=== PATIENT | female | born 1955 | race Caucasian/White ===

== ENCOUNTER → 2016-08-29 | Outpatient (CLI) | payer OTHER ==
[~2016-08-29] VITALS: Ht 157.5 cm; Wt 68.0 kg
[~2016-08-29] MED LIST: CELEXA10 MG PO; DAILY VITE1 EAC1 PO; KEPPRA XR500 MG PO; LO-DOSE ASPIRIN81 M1 PO; PEPCID20 MG PO; PRINIVIL10 MG PO; TEGRETOL200 MG PO; TYLENOL REGULA325 MG PO
[2016-08-29 08:35] LABS: POINT-OF-CARE METER ID UU13113694
[2016-08-29 09:13] LABS: INTER. NORMALIZED RATIO 1.6; PROTHROMBIN TIME 16.9 (9.2-11.2)
[2016-08-29 12:09] LABS: POINT-OF-CARE METER ID UU13113694
[2016-08-29 15:37] LABS: POINT-OF-CARE METER ID UU13113675; POINT-OF-CARE USER ID LABLCH83
== END | disposition home or self-care (01) ==
LOC: AMB 07:38
PROVIDERS: Internal Medicine Gastroenterology
DX: K83.1 Obstruction of bile duct (principal); R79.1 Abnormal coagulation profile; I10 Essential (primary) hypertension; E11.9 Type 2 diabetes mellitus without complications; Z79.82 Long term (current) use of aspirin; K21.9 Gastro-esophageal reflux disease without esophagitis; I25.2 Old myocardial infarction
CPT/HCPCS: 74328; 82948; 85610; 86850; 86900; 86901; 86999; 87081; 88305; C1726; C1757; C1769; C2625; J0744; J2250; J2405; J3010

== ENCOUNTER → 2016-10-03 | Outpatient (CLI) | payer OTHER | END | disposition home or self-care (01) | LOC: OPR 10-02 09:00 → EDSTATUS 09:00 → OPR 09:00 | PROC: 0WJFXZZ Inspection of Abdominal Wall, External Approach (ICD-10-PCS; principal; 2016-10-03) | DX: K76.9 Liver disease, unspecified (principal); Z53.09 Procedure and treatment not carried out because of other contraindication ==

== ENCOUNTER → 2016-10-09 | Outpatient (CLI) | payer OTHER ==
[~2016-10-09] MED LIST changes: +LEVAQUIN750 MG PO
== END | disposition home or self-care (01) ==
LOC: OPR 09:13 → EDSTATUS 10:00
DX: C78.7 Secondary malignant neoplasm of liver and intrahepatic bile duct (principal); K83.1 Obstruction of bile duct
CPT/HCPCS: 47533; 77012; 88307; 88341 TC; 88342 TC; C1729; C1769; J0696; J1885; J2250; J2405; J3010; J7050

== ENCOUNTER 2016-10-12 22:24 | Emergency (ER) | payer OTHER ==
[~2016-10-12] VITALS: Ht 149.9 cm; Wt 83.4 kg
[~2016-10-12 22:24] MED LIST changes: -LEVAQUIN750 MG PO
[2016-10-12 23:20] LABS: MCH 33.8 PG (29.0-34.0); MCHC 33.8 G/DL (30.0-36.0); MEAN PLAT.VOLUME 11.3 uM^3 (9.5-12.4); RBC DIS.WIDTH-CV 12.8 % (11.8-14.6); RBC DIS.WIDTH-SD 47.4 % (39-53)
[2016-10-12 23:22] LABS: CHLORIDE 99 mEq/L (99-109); POTASSIUM 3.8 mEq/L (3.7-5.4); SODIUM 130 mEq/L (136-147)
[2016-10-12 23:23] LABS: PLATELET COUNT 89 K/uL (156-360)
[2016-10-12 23:24] LABS: GLUCOSE 349 mg/dL (70-99); WHITE BLOOD COUNT 8.4 K/uL (4.1-10.2)
[2016-10-12 23:26] LABS: ANION GAP 12 MEQ/L (2-14); TOTAL BILIRUBIN 5.3 mg/dL (0.0-1.0)
[2016-10-12 23:27] LABS: INTER. NORMALIZED RATIO 1.1; PROTHROMBIN TIME 10.9 (9.2-11.2); PTT 20.5 (25-32)
[2016-10-12 23:28] LABS: ALKALINE PHOSPHATASE 346 IU/L (3-129); GFR ESTIMATE (CALCULATED) > 59 mL/min/
[2016-10-12 23:29] LABS: UREA NITROGEN (BUN) 14 mg/dL (9-23)
[2016-10-12 23:31] LABS: LIPASE 25 U/L (1.0-51.0)
[2016-10-13 00:19] LABS: BILIRUBIN MODERATE; BLOOD NEGATIVE; COLOR AMBER ((YELLOW)); GLUCOSE (STRIP) >=500; KETONES 5; LEUKOCYTES NEGATIVE; NITRITE NEGATIVE; PROTEIN (STRIP) 30
[2016-10-13 00:36] LABS: ADD MIUA? NO; UCUL ADDED? NO
[2016-10-13 00:47] LABS: ICTOTEST POSITIVE
[2016-10-13] MEDS ORDERED: LEVAQUIN750 MG PO (00:56)
[2016-10-13 01:21] VITALS: BP 140/84
== END 2016-10-13 01:22 | disposition home or self-care (01) ==
LOC: EME → EDBD 22:24 → EME 10-13 01:22
DX: R10.9 Unspecified abdominal pain (principal); E86.0 Dehydration; E78.5 Hyperlipidemia, unspecified; I10 Essential (primary) hypertension; I25.2 Old myocardial infarction; K21.9 Gastro-esophageal reflux disease without esophagitis; R56.9 Unspecified convulsions; I25.10 Atherosclerotic heart disease of native coronary artery without angina pectoris; Z79.82 Long term (current) use of aspirin
CPT/HCPCS: 74176; 80053; 81003; 83690; 85027; 85610; 85730; 87086; 99281; 99284

== ENCOUNTER → 2016-10-29 | Outpatient (CLI) | payer OTHER ==
[~2016-10-29] MED LIST changes: +LEVAQUIN750 MG PO
== END | disposition home or self-care (01) ==
LOC: RAD 10-28 15:00 → EDSTATUS 15:00 → RAD 15:00
PROC: BF10YZZ Fluoroscopy of Bile Ducts using Other Contrast (ICD-10-PCS; principal; 2016-10-29)
DX: C22.1 Intrahepatic bile duct carcinoma (principal)
CPT/HCPCS: 47536; C1725; C1729; C1769

== ENCOUNTER 2016-11-08 16:35 | Emergency (ER) | payer OTHER ==
[~2016-11-08] VITALS: Ht 149.9 cm; Wt 80.8 kg
[2016-11-08 17:56] LABS: HEMATOCRIT 27.1 % (36.0-46.0); MCH 32.1 PG (29.0-34.0); MCHC 32.5 G/DL (30.0-36.0); MCV 98.9 FL (83-99); MEAN PLAT.VOLUME 9.3 uM^3 (9.5-12.4); RBC DIS.WIDTH-CV 14.2 % (11.8-14.6); RBC DIS.WIDTH-SD 51.4 % (39-53); RED BLOOD COUNT 2.74 M/uL (3.80-5.20); WHITE BLOOD COUNT 6.4 K/uL (4.1-10.2)
[2016-11-08 17:58] LABS: PLATELET COUNT 158 K/uL (156-360)
[2016-11-08 18:03] LABS: CHLORIDE 101 mEq/L (99-109); POTASSIUM 4.8 mEq/L (3.7-5.4); SODIUM 130 mEq/L (136-147)
[2016-11-08 18:05] LABS: GLUCOSE 240 mg/dL (70-99)
[2016-11-08 18:07] LABS: ANION GAP 8 MEQ/L (2-14); TOTAL BILIRUBIN 3.1 mg/dL (0.0-1.0)
[2016-11-08 18:09] LABS: ALKALINE PHOSPHATASE 524 IU/L (3-129); GFR ESTIMATE (CALCULATED) 49 mL/min/
[2016-11-08 18:10] LABS: ADD MIUA? YES; BILIRUBIN NEGATIVE; BLOOD NEGATIVE; COLOR AMBER ((YELLOW)); GLUCOSE (STRIP) 50; KETONES NEGATIVE; LEUKOCYTES SMALL; NITRITE NEGATIVE; PROTEIN (STRIP) 30
[2016-11-08 18:11] LABS: UREA NITROGEN (BUN) 22 mg/dL (9-23)
[2016-11-08 18:12] LABS: LIPASE 84 U/L (1.0-51.0)
[2016-11-08 18:16] LABS: BACTERIA RARE /HPF; EPITHELIAL CELLS 1+ /HPF; MUCUS NONE SEEN /LPF; RED BLOOD CELLS 0-5 /HPF (0-5); UCUL ADDED? NO; WHITE BLOOD CELLS 20-30 /HPF (0-5)
[2016-11-08 19:55] VITALS: BP 142/74
== END 2016-11-08 20:04 | disposition home or self-care (01) ==
LOC: EME 16:35
PROVIDERS: Emergency Medicine
DX: R10.9 Unspecified abdominal pain (principal); C22.9 Malignant neoplasm of liver, not specified as primary or secondary; E87.1 Hypo-osmolality and hyponatremia; D64.9 Anemia, unspecified; I25.2 Old myocardial infarction; E11.9 Type 2 diabetes mellitus without complications; I10 Essential (primary) hypertension
CPT/HCPCS: 70450; 71250; 74176; 80053; 81003; 83690; 85027; 93005; 99281; 99285; J7030

== ENCOUNTER 2016-11-10 21:21 | Emergency (ER) | payer OTHER ==
[~2016-11-10] VITALS: Ht 149.9 cm; Wt 76.3 kg
[2016-11-10 23:25] VITALS: BP 110/64
== END 2016-11-10 23:54 | disposition home or self-care (01) ==
LOC: EME 21:21
DX: T85.628A Displacement of other specified internal prosthetic devices, implants and grafts, initial encounter (principal); C22.9 Malignant neoplasm of liver, not specified as primary or secondary; E78.5 Hyperlipidemia, unspecified; I10 Essential (primary) hypertension; I25.2 Old myocardial infarction; K21.9 Gastro-esophageal reflux disease without esophagitis; R56.9 Unspecified convulsions
CPT/HCPCS: 99281; 99284

== ENCOUNTER 2016-11-13 17:56 | Inpatient (IN) | payer OTHER ==
[~2016-11-13] VITALS: Ht 149.9 cm; Wt 78.7 kg
[2016-11-13 19:25] LABS: ADD MIUA? YES; BILIRUBIN NEGATIVE; BLOOD NEGATIVE; COLOR AMBER ((YELLOW)); GLUCOSE (STRIP) 50; KETONES NEGATIVE; LEUKOCYTES NEGATIVE; NITRITE NEGATIVE; PROTEIN (STRIP) 30; SPECIFIC GRAVITY 1.016 (1.000-1.030)
[2016-11-13 19:29] VITALS: BP 125/69
[2016-11-13 19:39] LABS: BACTERIA RARE /HPF; EPITHELIAL CELLS 2+ /HPF; MUCUS NONE SEEN /LPF; RED BLOOD CELLS 0-5 /HPF (0-5); UCUL ADDED? NO; WHITE BLOOD CELLS 0-5 /HPF (0-5)
[2016-11-13 19:58] LABS: HEMATOCRIT 26.1 % (36.0-46.0); MCH 32.1 PG (29.0-34.0); MCHC 33.3 G/DL (30.0-36.0); MCV 96.3 FL (83-99); RBC DIS.WIDTH-CV 14.3 % (11.8-14.6); RBC DIS.WIDTH-SD 50.3 % (39-53); RED BLOOD COUNT 2.71 M/uL (3.80-5.20); WHITE BLOOD COUNT 3.6 K/uL (4.1-10.2)
[2016-11-13 20:00] VITALS: BP 119/70
[2016-11-13 20:07] LABS: INTER. NORMALIZED RATIO 1.3; PROTHROMBIN TIME 13.7 (9.2-11.2)
[2016-11-13 20:09] LABS: CHLORIDE 97 mEq/L (99-109); POTASSIUM 4.4 mEq/L (3.7-5.4); SODIUM 133 mEq/L (136-147)
[2016-11-13 20:11] LABS: GLUCOSE 174 mg/dL (70-99)
[2016-11-13 20:12] LABS: ANION GAP 13 MEQ/L (2-14)
[2016-11-13 20:15] LABS: ALKALINE PHOSPHATASE 570 IU/L (3-129); GFR ESTIMATE (CALCULATED) 49 mL/min/
[2016-11-13 20:16] LABS: UREA NITROGEN (BUN) 24 mg/dL (9-23)
[2016-11-13 20:18] LABS: LIPASE 92 U/L (1.0-51.0)
[2016-11-13 20:24] LABS: TROP-I INTERPRETATION NEGATIVE; TROPONIN-I 0.01 ng/mL (0.0-0.30)
[2016-11-13 20:37] LABS: EOSINOPHIL (%) 0.6 % (0-5); IMMATURE GRANULOCYTE (%) 0.3 % (0.0-0.7); INSTRUMENT ABS NEUTROPHIL CT 1.6 K/uL; LYMPHOCYTE COUNT 1.9 K/uL (1.0-2.8); MEAN PLAT.VOLUME 9.6 uM^3 (9.5-12.4); MONOCYTE (%) 3.6 % (3-12); MONOCYTE COUNT 0.1 K/uL (0-0.8); NEUTROPHIL COUNT 1.6 K/uL (1.8-6.4); PLATELET COUNT 51 K/uL (156-360)
[2016-11-13 21:00] VITALS: BP 119/70
[2016-11-13 22:00] VITALS: BP 135/69
[2016-11-13] MEDS ORDERED: ASPIRIN81 M2 PO (22:02)
[2016-11-13] MEDS ORDERED: METFORMIN HCL1000 MG PO (22:02)
[2016-11-13] MEDS ORDERED: DICYCLOMINE HCL10 MG PO (22:02)
[2016-11-13] MEDS ORDERED: CLONAZEPAM1 MG PO (22:02)
[2016-11-13] MEDS ORDERED: PROCHLORPERAZIN10 MG PO (22:03)
[2016-11-13] MEDS ORDERED: MIRTAZAPINE15 MG PO (22:03)
[2016-11-13] MEDS ORDERED: ZOFRAN8 MG PO (22:03)
[2016-11-13 23:00] VITALS: BP 135/69
[2016-11-14] VITALS (15 sets, daily range): BP systolic 121–156; BP diastolic 60–103
[2016-11-14 08:00] LABS: HEMATOCRIT 24.2 % (36.0-46.0); MCHC 33.5 G/DL (30.0-36.0); MCV 95.7 FL (83-99); RBC DIS.WIDTH-SD 49.2 % (39-53); RED BLOOD COUNT 2.53 M/uL (3.80-5.20); WHITE BLOOD COUNT 4.4 K/uL (4.1-10.2)
[2016-11-14 08:15] LABS: ALKALINE PHOSPHATASE 513 IU/L (3-129); ANION GAP 10 MEQ/L (2-14); CHLORIDE 99 MEQ/L (99-109); GFR ESTIMATE (CALCULATED) > 59 mL/min/; GLUCOSE 124 mg/dL (70-99); LIPASE 67 U/L (1.0-51.0); POTASSIUM 4.2 MEQ/L (3.7-5.4); SAMPLE HEMOLYSIS CHECK 0; SAMPLE ICTERIC CHECK 1; SAMPLE LIPEMIA CHECK 0; SODIUM 133 MEQ/L (136-147); TOTAL BILIRUBIN 4.6 MG/DL (0.0-1.0); UREA NITROGEN (BUN) 21 mg/dL (9-23)
[2016-11-14 09:09] LABS: IMM.PLATELET FRACTION 1.7 (1-7); MEAN PLAT.VOLUME 10.4 uM^3 (9.5-12.4); PLATELET COUNT 44 K/uL (156-360)
[2016-11-14 16:54] LABS: POINT-OF-CARE METER ID UU13113725
[2016-11-14 20:33] LABS: POINT-OF-CARE METER ID UU13113725
[2016-11-15 00:52] LABS: POINT-OF-CARE METER ID UU13113725
[2016-11-15 05:54] LABS: POINT-OF-CARE METER ID UU13113725
[2016-11-15 06:07] LABS: ALKALINE PHOSPHATASE 516 IU/L (3-129); ANION GAP 12 MEQ/L (2-14); CHLORIDE 99 MEQ/L (99-109); GFR ESTIMATE (CALCULATED) > 59 mL/min/; GLUCOSE 131 mg/dL (70-99); LIPASE 60 U/L (1.0-51.0); SAMPLE HEMOLYSIS CHECK 0; SAMPLE ICTERIC CHECK 1; SAMPLE LIPEMIA CHECK 0; SODIUM 133 MEQ/L (136-147); TOTAL BILIRUBIN 4.2 MG/DL (0.0-1.0); UREA NITROGEN (BUN) 18 mg/dL (9-23)
[2016-11-15 06:25] LABS: HEMATOCRIT 23.4 % (36.0-46.0); MCH 31.5 PG (29.0-34.0); MCHC 33.3 G/DL (30.0-36.0); MCV 94.4 FL (83-99); RBC DIS.WIDTH-CV 13.7 % (11.8-14.6); RBC DIS.WIDTH-SD 47.6 % (39-53); RED BLOOD COUNT 2.48 M/uL (3.80-5.20); WHITE BLOOD COUNT 3.9 K/uL (4.1-10.2)
[2016-11-15 06:27] LABS: IMM.PLATELET FRACTION 1.7 (1-7); MEAN PLAT.VOLUME 10.2 uM^3 (9.5-12.4); PLAT.SUFFICIENCY DECREASED; PLATELET COUNT 35 K/uL (156-360)
[2016-11-15 07:26] VITALS: BP 96/46
[2016-11-15 09:59] VITALS: BP 139/62
[2016-11-15 11:23] LABS: POINT-OF-CARE METER ID UU13113725
[2016-11-15 16:39] LABS: POINT-OF-CARE METER ID UU13113725
[2016-11-15 18:49] VITALS: BP 127/75
[2016-11-15 23:12] VITALS: BP 145/71
[2016-11-15 23:55] LABS: POINT-OF-CARE METER ID UU13113725
[2016-11-16 05:47] LABS: POINT-OF-CARE METER ID UU13113725
[2016-11-16 07:20] VITALS: BP 134/60
[2016-11-16 11:34] LABS: POINT-OF-CARE METER ID UU13113725
[2016-11-16 16:37] LABS: POINT-OF-CARE METER ID UU13113725
[2016-11-16 16:54] VITALS: BP 114/58
[2016-11-16 18:13] LABS: EOSINOPHIL (%) 0.2 % (0-5); HEMATOCRIT 25.6 % (36.0-46.0); IMMATURE GRANULOCYTE (%) 0.2 % (0.0-0.7); INSTRUMENT ABS NEUTROPHIL CT 3.1 K/uL; LYMPHOCYTE COUNT 1.3 K/uL (1.0-2.8); MCH 32.3 PG (29.0-34.0); MCV 95.2 FL (83-99); MONOCYTE (%) 7.1 % (3-12); MONOCYTE COUNT 0.3 K/uL (0-0.8); NEUTROPHIL (%) 65.7 % (45-76); NEUTROPHIL COUNT 3.1 K/uL (1.8-6.4); RBC DIS.WIDTH-SD 48.6 % (39-53); RED BLOOD COUNT 2.69 M/uL (3.80-5.20); WHITE BLOOD COUNT 4.7 K/uL (4.1-10.2)
[2016-11-16 18:21] LABS: CHLORIDE 101 mEq/L (99-109); POTASSIUM 4.2 mEq/L (3.7-5.4); SODIUM 131 mEq/L (136-147)
[2016-11-16 18:25] LABS: ANION GAP 11 MEQ/L (2-14); TOTAL BILIRUBIN 3.7 mg/dL (0.0-1.0)
[2016-11-16 18:27] LABS: ALKALINE PHOSPHATASE 554 IU/L (3-129); GFR ESTIMATE (CALCULATED) > 59 mL/min/
[2016-11-16 18:28] LABS: UREA NITROGEN (BUN) 14 mg/dL (9-23)
[2016-11-16 18:29] LABS: DIRECT BILIRUBIN 2.7 mg/dL (0.0-0.3)
[2016-11-16 18:31] LABS: GLUCOSE 226 mg/dL (70-99)
[2016-11-16 19:32] LABS: IMM.PLATELET FRACTION 3.8 (1-7); MEAN PLAT.VOLUME 10.7 uM^3 (9.5-12.4); PLAT.SUFFICIENCY VERY DECREASED; PLATELET COUNT 28 K/uL (156-360)
[2016-11-16 23:00] LABS: ADD MIUA? YES; BILIRUBIN NEGATIVE; BLOOD SMALL; COLOR AMBER ((YELLOW)); GLUCOSE (STRIP) NEGATIVE; KETONES NEGATIVE; LEUKOCYTES NEGATIVE; NITRITE NEGATIVE; PROTEIN (STRIP) 100
[2016-11-16 23:08] VITALS: BP 131/63
[2016-11-16 23:13] LABS: BACTERIA RARE /HPF; EPITHELIAL CELLS 1+ /HPF; MUCUS TRACE /LPF; RED BLOOD CELLS 15-20 /HPF (0-5); UCUL ADDED? NO; WHITE BLOOD CELLS 0-5 /HPF (0-5)
[2016-11-17 07:44] LABS: HEMATOCRIT 22.4 % (36.0-46.0); MCH 31.6 PG (29.0-34.0); MCHC 33.5 G/DL (30.0-36.0); MCV 94.5 FL (83-99); RBC DIS.WIDTH-SD 47.6 % (39-53); RED BLOOD COUNT 2.37 M/uL (3.80-5.20); WHITE BLOOD COUNT 4.4 K/uL (4.1-10.2)
[2016-11-17 08:37] VITALS: BP 129/59
[2016-11-17 08:41] LABS: IMM.PLATELET FRACTION 4.4 (1-7); MEAN PLAT.VOLUME 10.8 uM^3 (9.5-12.4); PLATELET COUNT 31 K/uL (156-360)
[2016-11-17 08:45] LABS: PLAT.SUFFICIENCY VERY DECREASED
[2016-11-17 11:23] VITALS: BP 121/79
[2016-11-17 15:48] VITALS: BP 134/61
[2016-11-17 23:55] VITALS: BP 140/64
[2016-11-18] VITALS (13 sets, daily range): BP systolic 123–161; BP diastolic 59–71
[2016-11-18 06:08] LABS: POINT-OF-CARE METER ID UU13113725
[2016-11-18 08:03] LABS: POINT-OF-CARE METER ID UU13113725
[2016-11-18 08:12] LABS: HEMATOCRIT 20.7 % (36.0-46.0); MCH 32.6 PG (29.0-34.0); MCHC 33.8 G/DL (30.0-36.0); MCV 96.3 FL (83-99); RBC DIS.WIDTH-CV 14.6 % (11.8-14.6); RBC DIS.WIDTH-SD 48.6 % (39-53); RED BLOOD COUNT 2.15 M/uL (3.80-5.20); WHITE BLOOD COUNT 4.1 K/uL (4.1-10.2)
[2016-11-18 09:27] LABS: IMM.PLATELET FRACTION 3.9 (1-7); MEAN PLAT.VOLUME 10.6 uM^3 (9.5-12.4); PLAT.SUFFICIENCY DECREASED; PLATELET COUNT 45 K/uL (156-360)
[2016-11-18 12:02] LABS: POINT-OF-CARE METER ID UU13113725
[2016-11-18 16:45] LABS: POINT-OF-CARE METER ID UU13113725
[2016-11-18 21:02] LABS: POINT-OF-CARE METER ID UU13113725
[2016-11-19 07:06] VITALS: BP 120/60
[2016-11-19 09:04] LABS: HEMATOCRIT 29.7 % (36.0-46.0); MCH 32.3 PG (29.0-34.0); PLATELET COUNT 52 K/uL (156-360); RBC DIS.WIDTH-SD 53.8 % (39-53); RED BLOOD COUNT 3.03 M/uL (3.80-5.20); WHITE BLOOD COUNT 4.1 K/uL (4.1-10.2)
[2016-11-19 11:59] LABS: POINT-OF-CARE METER ID UU13113725
[2016-11-19 16:10] LABS: POINT-OF-CARE METER ID UU13113725
[2016-11-19 16:33] VITALS: BP 135/64
[2016-11-19 20:49] LABS: POINT-OF-CARE METER ID UU13113725
[2016-11-19 23:54] VITALS: BP 148/65
[2016-11-20 06:23] LABS: POINT-OF-CARE METER ID UU13113725
[2016-11-20 07:20] VITALS: BP 147/70
[2016-11-20] MEDS ORDERED: ROXICODONE5 MG PO (08:41)
== END 2016-11-20 14:40 | DRG 435 ==
LOC: EME 17:56 → 5EAST 22:35 → EDOF 22:35 → 5EAST 11-14 00:11
PROVIDERS: Emergency Medicine; Internal Medicine; Internal Medicine Medical Oncology
PROC: 30233N1 Transfusion of Nonautologous Red Blood Cells into Peripheral Vein, Percutaneous Approach (ICD-10-PCS; principal; 2016-11-18)
DX: C22.1 Intrahepatic bile duct carcinoma (principal); K85.90 Acute pancreatitis without necrosis or infection, unspecified; D64.81 Anemia due to antineoplastic chemotherapy; D69.59 Other secondary thrombocytopenia; G40.909 Epilepsy, unspecified, not intractable, without status epilepticus; I05.0 Rheumatic mitral stenosis; I10 Essential (primary) hypertension; F32.9 Major depressive disorder, single episode, unspecified; Z90.49 Acquired absence of other specified parts of digestive tract
CPT/HCPCS: 36415; 70450; 71010; 80053; 81003; 82140; 82248; 82948; 83690; 84443; 84484; 85025; 85025 91; 85027; 85610; 86900; 86901; 86920; 87040; 93005; 97530 GO; 97530 GP; 99281; 99285; J0696; J1650; J1815; J7030; J7040; J7050; P9016